=== PATIENT | male | born 2000 | race African-American/Black ===

== ENCOUNTER 2021-01-24 23:41 | Emergency (ER) | payer OTHER ==
[2021-01-25] MEDS ORDERED: predniSONE 20 MG Tab PO ONE (00:13)
--- NOTE | 2021-01-25 00:13 | EDM.PDOC ---
ED HPI GENERAL MEDICAL PROBLEM - General Chief Complaint: Lower Extremity Injury/Pain Stated Complaint: NUMBNESS IN LEFT THIGH Time Seen by Provider: 01/25/21 00:10 Source of Information: Reports: Patient, RN History Limitations: Reports: No Limitations - History of Present Illness INITIAL COMMENTS - FREE TEXT/NARRATIVE: ED with c/o numbness to lateral left thigh onset approximately 3 hours ago afte icing thigh. Reports fell palying basketball to left buttock and hip area. some tightness in muscles of back has not taken anything for pain. no weakness no loss of bowel or bladder control. Describes as tingling sensation. - Related Data Allergies Allergy/AdvReac Type Severity Reaction Status Date / Time No Known Allergies Allergy Verified 01/24/21 23:59 Home Meds: Home Meds . [No Known Home Meds] 01/24/21 [History] Review of Systems - Review of Systems Review Of Systems: Comprehensive ROS is negative, except as noted in HPI. ED EXAM, GENERAL - Physical Exam Exam: See Below Exam Limited By: No Limitations General Appearance: Alert, No Apparent Distress Eye Exam: Bilateral Eye: EOMI Ears: Normal External Exam Nose: Normal Inspection Throat/Mouth: Normal Voice Neck: Normal Inspection, Non-Tender, Full Range of Motion Respiratory/Chest: No Respiratory Distress, Lungs Clear, Normal Breath Sounds Cardiovascular: Regular Rate, Rhythm GI/Abdominal: Normal Bowel Sounds, Soft, Non-Tender Back Exam: Normal Inspection, Full Range of Motion. No: Muscle Spasm, Paraspinal Tenderness, Vertebral Tenderness Extremities: Normal Range of Motion, Non-Tender, Other (parathesia left lateral mid thigh ). No: Leg Pain, Limited Range of Motion, Pallor Neurological: Alert, Oriented, Normal Cognition Psychiatric: Normal Affect Skin Exam: Warm, Dry, Intact, Normal Color Course - Vital Signs Last Recorded V/S: Last Vital Signs Temp 98.9 F 01/25/21 00:05 Pulse 52 L 01/25/21 00:05 Resp 14 01/25/21 00:05 BP 141/80 H 01/25/21 00:05 Pulse Ox 99 01/25/21 00:05 - Orders/Labs/Meds Meds: Medications Discontinued Medications Generic Name Dose Route Start Last Admin Trade Name Freq PRN Reason Stop Dose Admin Prednisone 40 mg 01/25/21 00:13 01/25/21 00:22 Prednisone 20 Mg Tab PO 01/25/21 00:14 40 mg ONETIME ONE Administration Departure - Departure Time of Disposition: 00:07 Disposition: Home, Self-Care 01 Condition: Good Clinical Impression: Numbness and tingling of left leg - Discharge Information *PRESCRIPTION DRUG MONITORING PROGRAM REVIEWED*: No *COPY OF PRESCRIPTION DRUG MONITORING REPORT IN PATIENT CALEB: No Instructions: Paresthesia, [id number] Forms: ED Department Discharge Additional Instructions: alternate tylenol and ibuprofen every 4 hours as needed light activity tomorrow medrol dose pack follow with chiro as scheduled, gental manipulation follow up with Primary care clinic if not improving or weakness, loss of bowel or bladder Sepsis Event Note (ED) - Evaluation Sepsis Screening Result: No Definite Risk - Focused Exam Vital Signs: Vital Signs Temp Pulse Resp BP Pulse Ox 01/25/21 00:05 98.9 F 52 L 14 141/80 H 99
== END 2021-01-25 00:25 | disposition home or self-care (01) ==
LOC: EDSEX → DL.ED 23:41
DX: R20.0 Anesthesia of skin (principal); R20.2 Paresthesia of skin
CPT/HCPCS: 99283; J7512